=== PATIENT | male | born 1965 | race African-American/Black ===

== ENCOUNTER 2017-11-27 18:48 | Emergency (ER) | payer SELFPAY ==
[~2017-11-27] VITALS: Ht 190.5 cm; Wt 104.3 kg
[2017-11-27 19:10] VITALS: BP 168/95
--- NOTE | 2017-11-27 19:14 | Emergency Room Report ---
History of Present Illness General Chief Complaint: Pain Source: Patient Present Illness HPI 52 yo male patient presents to ER complaining of migraine. Patient reports hx of migraines since graduating high school. Reports taking Compazine, Reglan, Cafergot and Zofran for migraines, reports last dosage 7 hours ago, reports no relief of symptoms. Reports took Zofran in waiting room of ER. Reports nausea and photosensitivity. Reports hx of jaw surgery to fix broken jaw 3 days ago. Reports taking [place] for pain. Denies fever, chest pain, SOB, neck pain, cough. Reports that would report to [facility] for migraines not treated by at home medications and they would provide him with 2mg Dilaudid. States he moved over here and was too far to drive. Allergies: Coded Allergies: KETOROLAC (Verified Allergy, Unknown, 11/27/17) RIZATRIPTAN (Verified Allergy, Unknown, 11/27/17) Patient History Past Medical History: see triage record Reviewed Nursing Documentation: PMH: Agreed; PSxH: Agreed Review of Systems All Other Systems: negative except mentioned in HPI Physical Exam Vital Signs Date Time Temp Pulse Resp B/P (MAP) Pulse Ox O2 Delivery O2 Flow Rate FiO2 11/27/17 18:54 98.3 99 18 168/95 98 Room Air 98.2 Sp02 EP Interpretation: reviewed, normal General Appearance: well appearing, no apparent distress, alert, GCS 15, non- toxic Head: normocephalic, atraumatic Eyes: bilateral eye normal inspection, bilateral eye PERRL ENT: hearing grossly normal, normal pharynx, no angioedema, normal voice, uvula midline, moist mucus membranes, other - upper gum: metal wiring Neck: full range of motion Respiratory: lungs clear, normal breath sounds, no rhonchi, no respiratory distress, no accessory muscle use, no wheezing, speaking full sentences Cardiovascular #1: regular rate, rhythm, no edema Musculoskeletal: back normal, digits/nails normal, gait/station normal, normal range of motion, non-tender Neurologic: alert, oriented x3, responsive, motor strength/tone normal, sensory intact Psychiatric: mood/affect normal Skin: other - mild swelling around jaw bilaterally Lymphatic: no adenopathy Medical Decision Making PA Attestation Dr. Dean is my supervising Physician whom patient management has been discussed with. Diagnostic Impression: Primary Impression: Migraine ER Course Pt presents to ED c/o migraine. Multiple differentials considered. VITAL SIGNS are WNL, patient is afebrile. Bp elevated. Informed patient of reading, states never been diagnosed with HTN but BP usually elevated when he is in pain. Denies chest pain, SOB. Instructed to followup with primary care provider for further treatment and referral. Does not require intervention in ER at this time. ER COURSE CURES report negative. Informed patient Dilaudid not normally provided for treatment of migraine in ER. Will provide IM 1mg Dilaudid to patient for pain symptoms. Informed patient will not provide Dilaudid for migraine in the future. Patient declined fluids or alternative Rx for medication. Reports in waiting room, will drive patient home. Informed patient medication may cause drowsiness. Patient reports pain improved. Patient is AOx3, neurologically intact, nontoxic appearing, and ambulatory. DISCHARGE: -Rx provided Tylenol At this time pt is stable for d/c to home. Patient is resting comfortably, in no acute distress, nontoxic appearing, talking without difficulty. Will provide with patient care instructions and any necessary prescriptions. Patient to take medication as instructed. Care plan and follow-up instructions provided. Patient questions asked and answered. Patient instructed to follow-up with primary care provider in the next 3 days and discuss further referral with PCP to neurologist. ER precautions given. Patient instructed to return to ER immediately for any new or worsening of symptoms including but not limited to fever, neck stiffness , vision changes, and neurological symptoms. Last Vital Signs Date Time Temp Pulse Resp B/P (MAP) Pulse Ox O2 Delivery O2 Flow Rate FiO2 11/27/17 18:54 98.3 99 18 168/95 98 Room Air 98.2 Disposition: HOME, SELF-CARE Condition: Stable Patient Instructions: Migraine Headache, [id number], Recurrent Migraine Headache, [id number] Additional Instructions: Followup with primary care provider in 3 -5 days. Discuss referral to neuro for review of medications and alternative treatments for migraine. Take medications as directed. Patient questions asked and answered. ER precautions given, patient instructed to return to ER immediately for any new or worsening of symptoms. Antonio Jara Nov 27, 2017 19:13
[2017-11-27] MEDS ORDERED: HYDROmorphone 1mg/ml Carpuject IM ONE (19:30)
[2017-11-27 19:41] VITALS: BP 168/95
== END 2017-11-27 19:40 | disposition home or self-care (01) ==
LOC: EMR 19:33
DX: G43.909 Migraine, unspecified, not intractable, without status migrainosus (principal)
CPT/HCPCS: 96372; 99283; J1170